=== PATIENT | female | born 1960 | race Caucasian/White ===

== ENCOUNTER → 2017-06-18 | Outpatient (REF) ==
[~2017-06-18] MED LIST: BUSPAR10 MG PO; CATAPRES0.2 MG PO; EFFEXOR-XR150 MG PO; HCTZ 25MG TAB25 MG PO; PRILOSEC 20MG20 MG PO; SERZONE 10100 MG/TAB PO; SINGULAIR 110 MG/TAB PO
== END ==
LOC: ZLAB.WCH 08:33
DX: Z01.89 Encounter for other specified special examinations (principal)

== ENCOUNTER → 2017-10-20 | Outpatient (REF) | LOC: ZLAB.WCH 18:25 | DX: Z01.89 Encounter for other specified special examinations (principal) ==

== ENCOUNTER → 2018-06-17 | Outpatient (REF) | LOC: ZLAB.WCH 14:02 | DX: Z01.89 Encounter for other specified special examinations (principal) ==